=== PATIENT | female | born 1970 | race Two or more races ===

== ENCOUNTER 2022-01-14 19:36 | Emergency (ER) | payer SELFPAY ==
[~2022-01-14] VITALS: Ht 167.6 cm; Wt 66.7 kg
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
--- NOTE | 2022-01-14 20:30 | NUR ---
BROUGHT TO CT DEPT
[2022-01-14] MEDS ORDERED: HYDROCODONE/APAP 5/325MG TABLET ONE (21:10)
[2022-01-14] MEDS ORDERED: HYDR-4209 PO (21:14)
[2022-01-14] MEDS ORDERED: HYDROCODONE/APAP 5/325MG TABLET PO ONE (21:30)
--- NOTE | 2022-01-14 21:59 | NUR ---
SOFT C COLLAR PROVIDED
--- NOTE | 2022-01-14 21:59 | NUR ---
Patient discharged to home in stable condition. Written and verbal after care instructions given. Patient verbalizes understanding of instruction.
[2022-01-14 22:01] VITALS: BP 164/95
== END 2022-01-14 22:02 | disposition home or self-care (01) ==
LOC: ER 19:43
DX: S13.4XXA Sprain of ligaments of cervical spine, initial encounter (principal); S33.5XXA Sprain of ligaments of lumbar spine, initial encounter; Z88.8 Allergy status to other drugs, medicaments and biological substances; V49.59XA Passenger injured in collision with other motor vehicles in traffic accident, initial encounter; Y93.89 Activity, other specified; Y92.413 State road as the place of occurrence of the external cause; Y99.8 Other external cause status
CPT/HCPCS: 72125-TC; 72131-TC